=== PATIENT | female | born 1950 | race Native Hawaiian/Other Pacific Islander ===

== ENCOUNTER 2017-10-29 16:49 | Emergency (ER) | payer OTHER ==
[~2017-10-29] VITALS: Ht 154.9 cm; Wt 59.0 kg
[~2017-10-29 16:49] MED LIST: CLON0.5T36 PO; GABA300C2 PO; HYDR10TA51 PO; INSUINJP SC; NUCYNTA50 MG PO; XANAX2 MG OR
[2017-10-29 16:57] VITALS: TEMP 97.5
[2017-10-29 18:28] VITALS: BP 109/60
== END 2017-10-29 18:32 | disposition home or self-care (01) ==
LOC: ED 16:49
PROC: 2W3CX1Z Immobilization of Right Lower Arm using Splint (ICD-10-PCS; principal; 2017-10-29)
DX: S52.501A Unspecified fracture of the lower end of right radius, initial encounter for closed fracture (principal); S52.601A Unspecified fracture of lower end of right ulna, initial encounter for closed fracture; M84.43 Pathological fracture, ulna and radius; W23.0XXA Caught, crushed, jammed, or pinched between moving objects, initial encounter; Y92.098 Other place in other non-institutional residence as the place of occurrence of the external cause
CPT/HCPCS: 96372; 99283; J1885

== ENCOUNTER 2017-11-24 14:42 | Outpatient (CLI) | payer OTHER ==
[2017-11-24] MEDS ORDERED: METO50TA63 PO (19:17)
[2017-11-24] MEDS ORDERED: PROTONIX20 MG PO (19:17)
[2017-11-24] MEDS ORDERED: TOUJEO SOL300 UNIT/M SC (19:42)
== END 2017-11-24 14:49 | disposition short-term general hospital (02) ==
LOC: AMB 14:42
DX: R55 Syncope and collapse (principal); R53.1 Weakness; R07.89 Other chest pain
CPT/HCPCS: A0425; A0427

== ENCOUNTER 2017-11-24 14:52 | Observation (INO) | payer OTHER ==
[~2017-11-24] VITALS: Ht 154.9 cm; Wt 63.3 kg
[2017-11-24 14:55] VITALS: BP 135/62; TEMP 97.7
[2017-11-24 15:58] LABS: PLATELET COUNT 214 K/uL (152-353)
[2017-11-24 16:05] LABS: POTASSIUM 3.9 mmol/L (3.6-5.2); SODIUM 135 mmol/L (136-145)
[2017-11-24 16:14] LABS: PARTIAL THROMBOPLASTIN TIME 23.7 SECONDS (24.5-33.6)
[2017-11-24 19:09] VITALS: BP 139/57; TEMP 97.6
[2017-11-24] MEDS ORDERED: PROTONIX20 MG PO (19:17)
[2017-11-24] MEDS ORDERED: METO50TA63 PO (19:17)
[2017-11-24] MEDS ORDERED: TOUJEO SOL300 UNIT/M SC (19:42)
[2017-11-24 23:56] VITALS: BP 99/65; TEMP 97.8
[2017-11-25 04:00] VITALS: BP 108/52; TEMP 97.7
[2017-11-25 07:48] VITALS: BP 122/56; TEMP 98.1
== END 2017-11-25 11:00 | disposition home or self-care (01) ==
LOC: ED 14:52 → MED/SURG 17:58
DX: R07.89 Other chest pain (principal); I10 Essential (primary) hypertension; J44.9 Chronic obstructive pulmonary disease, unspecified; E11.9 Type 2 diabetes mellitus without complications; I44.7 Left bundle-branch block, unspecified
CPT/HCPCS: 36415; 80053; 82550; 84484; 85027; 85610; 85730; 93005; 94760; 96372; 99220; 99284; G0378; J1650; J2270

== ENCOUNTER 2018-12-16 10:53 | Outpatient (CLI) | payer OTHER ==
[~2018-12-16 10:53] MED LIST changes: +METO50TA63 PO; +PROTONIX20 MG PO; +TOUJEO SOL300 UNIT/M SC
[2018-12-16 11:17] LABS: PLATELET COUNT 170 K/uL (152-353)
== END 2018-12-16 22:38 | disposition home or self-care (01) ==
LOC: LABW 10:53
PROVIDERS: Internal Medicine
DX: E11.9 Type 2 diabetes mellitus without complications (principal); I10 Essential (primary) hypertension
CPT/HCPCS: 36415; 80061; 81000; 83036; 85027

== ENCOUNTER 2019-03-08 15:42 | Emergency (ER) | payer OTHER ==
[~2019-03-08] VITALS: Ht 154.9 cm; Wt 52.6 kg
[~2019-03-08 15:42] MED LIST changes: +ASA LOW DOSE81 MG PO; +FURO40TA93 PO; +GRALISE600 MG PO; +LIPITOR20 MG PO; +METOPROLOL SUCC1 TAB PO; +POTASSI24 PO; +TRAZODONE HYDR100 MG PO; +XANAX2 MG PO
[2019-03-08 19:20] VITALS: BP 138/65; TEMP 98.2
== END 2019-03-08 19:10 | disposition home or self-care (01) ==
LOC: ED 15:42
DX: S39.012A Strain of muscle, fascia and tendon of lower back, initial encounter (principal); X50.1XXA Overexertion from prolonged static or awkward postures, initial encounter; Y92.89 Other specified places as the place of occurrence of the external cause
CPT/HCPCS: 96372; 99283; J1885

== ENCOUNTER 2019-08-08 10:16 | Outpatient (CLI) | payer OTHER ==
[2019-08-08 10:49] LABS: PLATELET COUNT 219 K/uL (152-353)
[2019-08-08 11:46] LABS: POTASSIUM 4.9 mmol/L (3.6-5.2)
== END 2019-08-08 22:16 | disposition home or self-care (01) ==
LOC: LABW 10:16
PROVIDERS: Obstetrics & Gynecology Obstetrics
DX: M54.16 Radiculopathy, lumbar region (principal); I10 Essential (primary) hypertension; E11.42 Type 2 diabetes mellitus with diabetic polyneuropathy
CPT/HCPCS: 36415; 80053; 80061; 84443; 85027; 85651; 86140

== ENCOUNTER 2019-08-10 10:26 | Emergency (ER) | payer OTHER ==
[~2019-08-10] VITALS: Ht 154.9 cm; Wt 54.4 kg
[2019-08-10 10:55] VITALS: TEMP 97.2
[2019-08-10 11:24] LABS: PLATELET COUNT 253 K/uL (152-353)
[2019-08-10 11:34] LABS: POTASSIUM 4.1 mmol/L (3.6-5.2)
[2019-08-10 12:48] VITALS: BP 148/88
== END 2019-08-10 12:48 | disposition home or self-care (01) ==
LOC: ED 10:26
PROVIDERS: Hospitalist
DX: J18.9 Pneumonia, unspecified organism (principal)
CPT/HCPCS: 80048; 85027; 87502; 87651; 94664; 99283; J0456

== ENCOUNTER 2019-08-24 20:31 | Emergency (ER) | payer OTHER ==
[~2019-08-24] VITALS: Ht 154.9 cm; Wt 52.2 kg
[2019-08-24 21:54] VITALS: BP 136/66; TEMP 97.9
== END 2019-08-24 21:50 | disposition home or self-care (01) ==
LOC: ED 20:31
DX: M54.41 Lumbago with sciatica, right side (principal); G89.29 Other chronic pain; M54.16 Radiculopathy, lumbar region
CPT/HCPCS: 96372; 99283; J1885; J2360

== ENCOUNTER 2020-11-11 16:22 | Observation (INO) | payer OTHER ==
[2020-11-11] VITALS (10 sets, daily range): BP systolic 101–158; BP diastolic 54–90; TEMP 97.8–98; Ht 154.9 cm; Wt 65.5 kg
[~2020-11-11] VITALS: Ht 154.9 cm; Wt 65.5 kg
[2020-11-11 17:03] LABS: PLATELET COUNT 161 K/uL (152-353)
[2020-11-11 17:06] LABS: SODIUM 140 mmol/L (136-145)
[2020-11-11 17:11] LABS: PARTIAL THROMBOPLASTIN TIME 22.3 SECONDS (24.5-33.6)
[2020-11-12] VITALS: BP 127/49; TEMP 97.4
[2020-11-12 04:00] VITALS: BP 130/48; TEMP 98.6
[2020-11-12 08:00] VITALS: BP 146/41; TEMP 98
== END 2020-11-12 11:27 | disposition home or self-care (01) ==
LOC: ED 16:26 → MED/SURG 17:45
PROVIDERS: ADMIT Hospitalist; ATTEND Internal Medicine Endocrinology, Diabetes & Metabolism
DX: R07.89 Other chest pain (principal); I25.10 Atherosclerotic heart disease of native coronary artery without angina pectoris; K21.9 Gastro-esophageal reflux disease without esophagitis; E11.9 Type 2 diabetes mellitus without complications; E78.49 Other hyperlipidemia; F41.8 Other specified anxiety disorders; R06.02 Shortness of breath
CPT/HCPCS: 36415; 80053; 80307; 80320; 82550; 83880; 84484; 85027; 85379; 85610; 85730; 87635; 93005; 96360; 96366; 96372; 96374; 96375; 99220; 99284; G0378; J1650; J2270; J2405; J3490; U0003

== ENCOUNTER 2022-12-22 15:44 | Emergency (ER) | payer OTHER ==
[~2022-12-22] VITALS: Ht 154.9 cm; Wt 63.5 kg
[2022-12-22 17:06] VITALS: BP 136/70; TEMP 98.2
== END 2022-12-22 17:06 | disposition home or self-care (01) ==
LOC: ED 15:44
DX: S51.812A Laceration without foreign body of left forearm, initial encounter (principal); W54.1XXA Struck by dog, initial encounter; Y92.89 Other specified places as the place of occurrence of the external cause
CPT/HCPCS: 99282

== ENCOUNTER 2023-10-29 14:03 | Emergency (ER) | payer OTHER ==
[~2023-10-29] VITALS: Ht 154.9 cm; Wt 63.3 kg
[~2023-10-29 14:03] MED LIST changes: +INSULIN; +NEURONTIN800 MG PO; +NITR0.4S2 SL; +PANTOPRAZOLE 40MG TA PO; +PEPCID40 MG PO
[2023-10-29 14:07] VITALS: TEMP 98.2
[2023-10-29 15:00] VITALS: BP 134/62
== END 2023-10-29 15:30 | disposition home or self-care (01) ==
LOC: ED 14:03
DX: S69.82XA Other specified injuries of left wrist, hand and finger(s), initial encounter (principal); S80.811A Abrasion, right lower leg, initial encounter; L03.818 Cellulitis of other sites; L29.8 Other pruritus; Y92.89 Other specified places as the place of occurrence of the external cause
CPT/HCPCS: 99282